=== PATIENT | female | born 1955 | race Caucasian/White ===

== ENCOUNTER 2019-01-10 18:08 | Emergency (ER) | payer OTHER ==
[2019-01-10] MEDS: ONDANSETRON (ODT) 4 MG TAB ODT (19:38)
[2019-01-10] MEDS: HYDROmorphONE 0.5 MG/0.5 ML SYG IM (19:38)
== END 2019-01-10 21:39 | disposition home or self-care (01) ==
LOC: FTE 18:08
DX: M54.12 Radiculopathy, cervical region (principal); I10 Essential (primary) hypertension
CPT/HCPCS: 72125; 96372; 99285-25